=== PATIENT | male | born 1975 | race Hispanic/Latino ===

== ENCOUNTER 2021-10-20 08:07 | Emergency (ER) | payer SELFPAY ==
[~2021-10-20] VITALS: Ht 177.8 cm; Wt 131.5 kg
[2021-10-20] MEDS ORDERED: ONDANSETRON HCL 4 MG ORAL DISINTEGRATING TAB PO ONE (08:30)
[2021-10-20] MEDS ORDERED: ONDANSETRON HCL 4 MG ORAL DISINTEGRATING TAB ONE (08:39)
== END 2021-10-20 08:36 | disposition home or self-care (01) ==
LOC: ER 08:18
DX: R11.0 Nausea (principal); F41.9 Anxiety disorder, unspecified
CPT/HCPCS: 99282; Q0162

== ENCOUNTER 2024-04-08 18:21 | Emergency (ER) | payer OTHER ==
[~2024-04-08] VITALS: Ht 177.8 cm; Wt 131.5 kg
[2024-04-08 19:57] VITALS: PULSE 102; RESP 20; TEMP 97.7; O2SAT 97
== END 2024-04-08 20:01 | disposition home or self-care (01) ==
LOC: ER 18:32
DX: M25.561 Pain in right knee (principal); W01.0XXA Fall on same level from slipping, tripping and stumbling without subsequent striking against object, initial encounter; Y93.01 Activity, walking, marching and hiking; Y92.512 Supermarket, store or market as the place of occurrence of the external cause; E11.9 Type 2 diabetes mellitus without complications; F41.9 Anxiety disorder, unspecified
CPT/HCPCS: 99283